=== PATIENT | female | born 1985 | race African-American/Black ===

== ENCOUNTER 2016-09-11 11:05 | Emergency (ER) | payer SELFPAY ==
[2016-09-11] MEDS: KETOROLAC TROMETHAMINE 30 MG/1ML VIAL IM ONE ×2 (12:03→13:02)
[2016-09-11] MEDS: DIAZEPAM 5 MG/ML DISP.SYRIN IM ONE ×2 (12:03→13:02)
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
[2016-09-11 13:45] VITALS: BP 108/62
== END 2016-09-11 13:27 | disposition home or self-care (01) ==
LOC: ED 11:05
DX: S16.1XXA Strain of muscle, fascia and tendon at neck level, initial encounter (principal); V44.5XXA Car driver injured in collision with heavy transport vehicle or bus in traffic accident, initial encounter; Y93.9 Activity, unspecified; Y99.9 Unspecified external cause status
CPT/HCPCS: 72125; J1885; J3360; 72040; 96372; 99283

== ENCOUNTER 2017-05-08 07:57 | Outpatient (CLI) | payer BC ==
--- NOTE | 2017-05-08 08:30 | Diagnostic Imaging Report ---
ENDY KRAUS (GEORGINA) - OP [facility] [id number] [facility] 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 No abnormal dilation of the large or small bowel. Air and stool throughout the large bowel. No suspicious calcification projecting over the renal fossa or the lower pelvic region. Pelvic phleboliths. Osseous structures are appropriate for age. Impression: Large bowel stool - constipation. No obstruction. No suspicious calcifications by plain film sensitivity. Electronically signed on May 08, 2017 8:15:16 AM BIG DATA PLATFORM ARCHITECT by: Abdiaziz PETERS
== END 2017-05-08 08:00 ==
LOC: LAB 07:57
PROVIDERS: ATTEND Nurse Practitioner Family
DX: R19.4 Change in bowel habit (principal)
CPT/HCPCS: 74020